=== PATIENT | male | born 1990 | race Caucasian/White ===

== ENCOUNTER 2021-11-12 07:37 | Day surgery (SDC) | payer BC ==
[~2021-11-12 07:37] MED LIST: Lactated Ringers 1,000 ML IV SCH; Lidocaine 2% 5 ML SDV ONE; Propofol 200 MG/20 ML SDV ONE; fentaNYL 100 MCG/2 ML SDV ONE
== END 2021-11-12 09:55 | disposition home or self-care (01) ==
LOC: MW.SDS 07:37
PROVIDERS: ATTEND Surgery
DX: D12.6 Benign neoplasm of colon, unspecified (principal); K64.8 Other hemorrhoids; K21.9 Gastro-esophageal reflux disease without esophagitis; F32.A Depression, unspecified; Z79.899 Other long term (current) drug therapy; F41.9 Anxiety disorder, unspecified; Z87.891 Personal history of nicotine dependence
CPT/HCPCS: 43239; 45380; 45385; J2704; J3010; J7120; 00813

== ENCOUNTER 2022-04-27 15:17 | Emergency (ER) | payer BC, OTHER | END 2022-04-27 18:02 | disposition home or self-care (01) | LOC: MW.ED 15:17 | DX: S39.94XA Unspecified injury of external genitals, initial encounter (principal); I86.1 Scrotal varices; Z79.899 Other long term (current) drug therapy; W01.198A Fall on same level from slipping, tripping and stumbling with subsequent striking against other object, initial encounter | CPT/HCPCS: 76870; 76870-26; 81003; 93976; 99284 ==